=== PATIENT | female | born 1945 | race Caucasian/White ===

== ENCOUNTER 2017-06-25 07:13 | Day surgery (SDC) | payer MEDICARE ==
[2017-06-22 13:48] VITALS: BMI 35.5
[~2017-06-25 07:13] MED LIST: LACTATED RINGERS 1,000 ML IV SCH
[2017-06-25 07:30] VITALS: TEMP 97.9
[2017-06-25] MEDS ORDERED: PROPOFOL 10 MG/ML 20 ML VIAL IV ONE (08:11)
[2017-06-25] MEDS ORDERED: LIDOCAINE 1% INJ 10MG/ML (20 ML MDV) ONE (08:11)
--- NOTE | 2017-06-25 08:25 | P.GSHP ---
History of Present Illness H&P Date: 06/25/17 Chief Complaint: Colon cancer screening Patient here today for colonoscopy. Last colonoscopy 4 years ago. The patient has a personal history of colon polyps. No bowel related complaints. Past Medical History Past Medical History: GERD/Reflux Additional Past Medical History / Comment(s): hiatal hernia, wears pessary History of Any Multi-Drug Resistant Organisms: None Reported Past Surgical History: Hysterectomy Past Anesthesia/Blood Transfusion Reactions: No Reported Reaction Past Psychological History: Depression Smoking Status: Never smoker Past Alcohol Use History: None Reported Past Drug Use History: None Reported - Past Family History Mother Family Medical History: CVA/TIA Father Family Medical History: Diabetes Mellitus Medications and Allergies Home Medications Medication Instructions Recorded Confirmed Type Aspirin 81 mg PO DAILY 06/22/17 06/25/17 History Calcium Carb-Vit D 500Mg-200Un 1 each PO BID 06/22/17 06/25/17 History [Oscal 500+D] FLUoxetine HCL [PROzac] 20 mg PO QAM 06/22/17 06/25/17 History Ferrous Sulfate [Feosol] 325 mg PO DAILY 06/22/17 06/25/17 History Omeprazole [PriLOSEC] 20 mg PO QAM 06/22/17 06/25/17 History Raloxifene HCl 60 mg PO DAILY 06/22/17 06/25/17 History Simvastatin [Zocor] 20 mg PO HS 06/22/17 06/25/17 History Allergies Allergy/AdvReac Type Severity Reaction Status Date / Time Penicillins Allergy Rash/Hives Verified 06/22/17 13:36 morphine AdvReac Nausea & Verified 06/22/17 13:36 Vomiting Surgical - Exam Vital Signs Temp Pulse Resp BP Pulse Ox 97.9 F 72 20 136/77 99 06/25/17 07:28 06/25/17 07:28 06/25/17 07:28 06/25/17 07:28 06/25/17 07:28 Physical exam: General: Well-developed, well-nourished HEENT: Normocephalic, sclerae nonicteric Abdomen: Nontender, nondistended Extremities: No edema Neuro: Alert and oriented Assessment and Plan (1) Colon cancer screening Narrative/Plan: Will proceed with colonoscopy at this time. Current Visit: Yes Status: Acute Code(s): Z12.11 - ENCOUNTER FOR SCREENING FOR MALIGNANT NEOPLASM OF COLON SNOMED Code(s): 715877562
--- NOTE | 2017-06-25 08:36 | P.PCN ---
Date of Procedure: 06/25/17 Procedure(s) Performed: PREOPERATIVE DIAGNOSIS: Colon cancer screening POSTOPERATIVE DIAGNOSIS: Normal exam PROCEDURE: Colonoscopy ANESTHESIA: MAC SURGEON: Vadim Mackay M.D. SPECIMENS: None ENDOSCOPIC PROCEDURE: The patient was placed on the endoscopy table in the left decubitus position. The Olympus colonoscope was inserted into the anus and passed under direct visualization to the base of the cecum. The appendiceal orifice was visualized. From that point the scope was slowly withdrawn inspecting all surfaces carefully. There were no neoplastic inflammatory or polypoid lesions throughout the cecum, ascending, transverse, descending, sigmoid and rectum. There was no diverticulosis noted. Digital rectal examination was normal. The patient was taken to the recovery room in stable condition per anesthesia guidelines. RECOMMENDATIONS: Increase fiber. Consider follow-up colonoscopy 5 years given the patient's personal history of colon polyps.
[2017-06-25 08:42] VITALS: RESP 18
[2017-06-25 08:55] VITALS: BP 120/68; PULSE 78
== END 2017-06-25 09:10 | disposition home or self-care (01) ==
LOC: ORWHC2ENDO 07:13
PROVIDERS: ATTEND Surgery
DX: Z12.11 Encounter for screening for malignant neoplasm of colon (principal); Z87.19 Personal history of other diseases of the digestive system; K21.9 Gastro-esophageal reflux disease without esophagitis; K44.9 Diaphragmatic hernia without obstruction or gangrene; F32.9 Major depressive disorder, single episode, unspecified; Z79.82 Long term (current) use of aspirin; Z79.899 Other long term (current) drug therapy; Z88.5 Allergy status to narcotic agent; Z88.0 Allergy status to penicillin; E78.5 Hyperlipidemia, unspecified
CPT/HCPCS: J2001; J2704; G0121

== ENCOUNTER → 2018-07-09 | Outpatient (CLI) | payer MEDICARE ==
--- NOTE | 2018-07-10 15:37 | BD ---
EXAMINATION TYPE: Axial Bone Density DATE OF EXAM: 07/09/2018 COMPARISON: NONE CLINICAL HISTORY: post menopausal no HRT Height: 4'11 1/2 Weight: 178 FRAX RISK QUESTIONS: History of Fracture in Adulthood: y Secondary Osteoporosis: RISK FACTORS HISTORY OF: History of Wrist Fracture: rt When: 2018 Postmenopausal woman: y Take estrogen and/or progesterone medications: y How lon MEDICATIONS: Additional Medications: cholesterol, depression , Additional History: EXAM MEASUREMENTS: Bone mineral densitometry was performed using the [employer] System. Bone mineral density as measured about the Lumbar spine is: ----- L1-L4(G/cm2): 0.92 T Score Values are as follows: ----- L2: -2.1 ----- L3: -2.4 ----- L4: -1.8 ----- L1-L4: -2.1 Bone mineral density about the R hip (g/cm2): 0.747 Bone mineral density about the L hip (g/cm2): 0.768 T Score values are as follows: -----R Neck: -2.1 -----L Neck: -1.9 -----R Total: -2.6 -----L Total: -2.0 IMPRESSION: Osteoporosis (T Score less than -2.5) with regards to the right hip. There is increased fracture risk and therapy is usually indicated based on age. Re-Screen 1-2 years. NOTE: T-SCORE=SD OF THE YOUNG ADULT MEAN.
== END ==
LOC: RADBDWWP 14:10
PROVIDERS: ATTEND Family Medicine
DX: M81.0 Age-related osteoporosis without current pathological fracture (principal); Z78.0 Asymptomatic menopausal state
CPT/HCPCS: 77080

== ENCOUNTER → 2019-06-13 | Outpatient (CLI) | payer MEDICARE ==
[2019-06-13 11:13] LABS: Basophils # (A) 0.1 k/uL (0-0.2); Basophils % (A) 1 %; Eosinophils # (A) 0.3 k/uL (0-0.7); Eosinophils % (A) 4 %; HCT 46.4 % (34.0-46.0); Lymphocytes # (A) 1.8 k/uL (1.0-4.8); Lymphocytes % (A) 24 %; MCH 30.6 pg (25.0-35.0); MCHC 32.3 g/dL (31.0-37.0); MCV 94.7 fL (80.0-100.0); Mean Platelet Volume 9.4; Monocytes # (A) 0.2 k/uL (0-1.0); Monocytes % (A) 3 %; Neutrophils # (A) 4.9 k/uL (1.3-7.7); Neutrophils % (A) 67 %; Platelet Count 188 k/uL (150-450); WBC 7.3 k/uL (3.8-10.6)
[2019-06-13 11:19] LABS: ALT 15 U/L (4-34); AST 21 U/L (14-36); African American GFR (CKD) >90 (>60 ml/min/1.73 sqM); Alkaline Phosphatase 133 U/L (38-126); Anion Gap 5 mmol/L; Blood Urea Nitrogen 13 mg/dL (7-17); Calcium 9.2 mg/dL (8.4-10.2); Carbon Dioxide 31 mmol/L (22-30); Chloride 102 mmol/L (98-107); Glucose 92 mg/dL (74-99); Non-African American GFR(CKD) 83 (>60 ml/min/1.73 sqM); Potassium 5.3 mmol/L (3.5-5.1); Sodium 138 mmol/L (137-145); Total Bilirubin 0.4 mg/dL (0.2-1.3); Total Protein 7.1 g/dL (6.3-8.2)
[2019-06-13 11:32] LABS: Appearance,Urine Clear (Clear); Bilirubin,Urine Negative (Negative); Blood,Urine Negative (Negative); Color,Urine Yellow; Glucose,Urine (UA) Negative (Negative); Ketones,Urine Negative (Negative); Leukocyte Esterase,Urine Negative (Negative); Nitrite,Urine Negative (Negative); Protein,Urine Negative (Negative); Specific Gravity,Urine 1.016 (1.001-1.035); Urobilinogen,Urine <2.0 mg/dL (<2.0)
== END | disposition home or self-care (01) ==
LOC: LABPAT 10:07
PROVIDERS: ATTEND Urology
DX: Z01.812 Encounter for preprocedural laboratory examination (principal); N81.9 Female genital prolapse, unspecified; E86.0 Dehydration; R35.0 Frequency of micturition
CPT/HCPCS: 36415; 80053; 81003; 85025; 87086

== ENCOUNTER → 2019-09-18 | Outpatient (CLI) | payer MEDICARE ==
[2019-09-18 10:49] LABS: Basophils # (A) 0.1 k/uL (0-0.2); Basophils % (A) 1 %; Eosinophils # (A) 0.2 k/uL (0-0.7); Eosinophils % (A) 2 %; HCT 46.6 % (34.0-46.0); HGB 14.5 gm/dL (11.4-16.0); Lymphocytes # (A) 1.6 k/uL (1.0-4.8); Lymphocytes % (A) 22 %; MCH 30.3 pg (25.0-35.0); MCHC 31.2 g/dL (31.0-37.0); MCV 97.2 fL (80.0-100.0); Mean Platelet Volume 8.7; Monocytes # (A) 0.2 k/uL (0-1.0); Monocytes % (A) 3 %; Neutrophils # (A) 4.9 k/uL (1.3-7.7); Neutrophils % (A) 70 %; Platelet Count 187 k/uL (150-450); RBC 4.79 m/uL (3.80-5.40); RDW 13.6 % (11.5-15.5)
[2019-09-18 11:02] LABS: African American GFR (CKD) >90 (>60 ml/min/1.73 sqM); Anion Gap 3 mmol/L; Blood Urea Nitrogen 22 mg/dL (7-17); Calcium 8.9 mg/dL (8.4-10.2); Carbon Dioxide 29 mmol/L (22-30); Chloride 108 mmol/L (98-107); Glucose 92 mg/dL (74-99); Non-African American GFR(CKD) >90 (>60 ml/min/1.73 sqM); Potassium 5.2 mmol/L (3.5-5.1); Sodium 140 mmol/L (137-145)
[2019-09-18 11:07] LABS: Appearance,Urine Cloudy (Clear); Bilirubin,Urine Negative (Negative); Blood,Urine Negative (Negative); Color,Urine Yellow; Glucose,Urine (UA) Negative (Negative); Ketones,Urine Negative (Negative); Leukocyte Esterase,Urine Negative (Negative); Nitrite,Urine Negative (Negative); Protein,Urine Negative (Negative); Specific Gravity,Urine 1.022 (1.001-1.035); Squamous Epithelial Cell,Urine 1 /hpf (0-4); Urobilinogen,Urine <2.0 mg/dL (<2.0); WBC,Urine <1 /hpf (0-5)
== END | disposition home or self-care (01) ==
LOC: LABPAT 10:13
PROVIDERS: ATTEND Urology
DX: Z01.818 Encounter for other preprocedural examination (principal); N81.9 Female genital prolapse, unspecified; E86.0 Dehydration; R58 Hemorrhage, not elsewhere classified; R35.0 Frequency of micturition
CPT/HCPCS: 36415; 80048; 81001; 85025; 85610; 87086

== ENCOUNTER 2019-09-25 09:38 | Observation (INO) | payer MEDICARE ==
[2019-09-23 12:06] VITALS: BMI 33.5
--- NOTE | 2019-09-24 10:45 | P.HPIHPCON ---
History of Present Illness H&P Date: 09/25/19 Chief Complaint: pelvic organ prolapse Ms Batres is 73 yo female with stage IV organ prolapse, she is symptomatic from her prolapse. Surgical intervention and pessary was discussed with her. She elected to proceed with robotic sacrocolpopexy. Risk of bleeding, infection and mesh erosion were discussed with her. All risks and benefit of the operation were discussed with her. She understood all risks and agreed to proceed with robotic sacrocolpopexy Consent for Procedure: I have explained the operation/procedure to the patient, including the risks, benefits, side effects, alternative therapies (including not receiving the proposed treatment or service), the likelihood of the patient achieving his/her goals, and potential recuperation problems for the procedure/sedation/analgesia, as well as any blood products, if indicated. I also explained to the patient the risks, benefits and side effects of the alternatives, as well as the risks related to not receiving the proposed procedure, care, treatment, or services. - Constitutional Constitutional: Denies chills, Denies fever - Cardiovascular Cardiovascular: Denies chest pain, Denies shortness of breath - Respiratory Respiratory: Denies cough, Denies 7 - Gastrointestinal Gastrointestinal: Denies abdominal pain, Denies diarrhea, Denies nausea, Denies vomiting - Genitourinary (Female) Genitourinary: Denies dysuria, Denies hematuria Past Medical History Past Medical History: GERD/Reflux, Osteoarthritis (OA), Thyroid Disorder Additional Past Medical History / Comment(s): hiatal hernia, prolapse of genital organs currently. History of Any Multi-Drug Resistant Organisms: None Reported Past Surgical History: Hysterectomy Additional Past Surgical History / Comment(s): Colonoscopy Past Anesthesia/Blood Transfusion Reactions: No Reported Reaction Smoking Status: Never smoker - Past Family History Mother Family Medical History: CVA/TIA, Myocardial Infarction ([place]) Father Family Medical History: Diabetes Mellitus Brother(s) Family Medical History: Cancer Additional Family Medical History / Comment(s): stomach cancer Medications and Allergies Home Medications Medication Instructions Recorded Confirmed Type Aspirin 81 mg PO DAILY 06/22/17 09/23/19 History Calcium Carb-Vit D 500Mg-200Un 1 each PO BID 06/22/17 09/23/19 History [Oscal 500+D] FLUoxetine HCL [PROzac] 20 mg PO QAM 06/22/17 09/23/19 History Ferrous Sulfate [Feosol] 325 mg PO DAILY 06/22/17 09/23/19 History Omeprazole [PriLOSEC] 20 mg PO QAM 06/22/17 09/23/19 History Raloxifene HCl 60 mg PO DAILY 06/22/17 09/23/19 History Simvastatin [Zocor] 20 mg PO HS 06/22/17 09/23/19 History Ergocalciferol (Vitamin D2) 50,000 unit PO MO 06/17/19 09/23/19 History [Drisdol] Methimazole [Tapazole] 5 mg PO DAILY@1700 06/17/19 09/23/19 History Allergies Allergy/AdvReac Type Severity Reaction Status Date / Time Penicillins Allergy Rash/Hives Verified 09/23/19 11:31 morphine AdvReac Nausea & Verified 09/23/19 11:31 Vomiting Surgical - Exam - General well developed, well nourished, no distress - Eyes normal ocular movement - Respiratory normal expansion, normal respiratory effort - Abdomen Abdomen: soft, non tender - Psychiatric oriented to time, oriented to person, oriented to place, speech is normal Assessment and Plan Assessment: 73 yo female with hx of pelvic organ prolapse -OR for robotic sacrocolpopexy
[~2019-09-25 09:38] MED LIST changes: +CLINDAMYCIN 900 MG in DEXTROSE 5% IN WATER 50 ML IVPB ONE; +DEXAMETHASONE SOD PHOSPHATE 10 MG/ML 1 ML VIAL IV ONE; +GENTAMICIN 120 MG in SODIUM CHLORIDE 0.9% 100 ML IVPB ONE; +HYDROmorphone 0.5 MG/0.5 ML SYRINGE IVP PRN; +ONDANSETRON 4 MG/2 ML VIAL IVP ONE
[2019-09-25] MEDS ORDERED: ONDANSETRON 4 MG/2 ML VIAL ONE (11:05)
[2019-09-25] MEDS ORDERED: LIDOCAINE 1% (10MG/ML) FOR IV START SQ ONE (11:06)
[2019-09-25] MEDS ORDERED: MIDAZOLAM 2 MG/2 ML VIAL ONE (11:29)
[2019-09-25] MEDS ORDERED: NEOSTIGMINE 1 MG/ML 10 ML VIAL ONE (11:29)
[2019-09-25] MEDS ORDERED: LIDOCAINE 1% INJ 10MG/ML (20 ML MDV) ONE (11:29)
[2019-09-25] MEDS ORDERED: SUCCINYLCHOLINE CHLORIDE 100 MG/5 ML SYR IV ONE (11:29)
[2019-09-25] MEDS ORDERED: fentaNYL (PF) 50 MCG/ML 2 ML AMP ONE (11:29)
[2019-09-25] MEDS ORDERED: GLYCOPYRROLATE 0.2 MG/ML 2 ML VIAL ONE (11:29)
[2019-09-25] MEDS ORDERED: ROCURONIUM BROMIDE 10 MG/ML 5 ML VIAL IV ONE (11:29)
[2019-09-25] MEDS ORDERED: PROPOFOL 10 MG/ML 20 ML VIAL IV ONE (11:29)
[2019-09-25] MEDS ORDERED: BUPIVACAINE (PF) 0.25% 30 ML VIAL SQ ONE ×2 (12:12→13:32)
--- NOTE | 2019-09-25 13:43 | P.OP ---
Date of Procedure: 09/25/19 Preoperative Diagnosis: Pelvic organ prolapse grade 4 with cystocele and rectocele Postoperative Diagnosis: Pelvic organ prolapse grade 4 with cystocele and rectocele Procedure(s) Performed: Robotic sacral colpopexy with repair of cystocele and rectocele Implants: Y mesh Anesthesia: CHARBEL Surgeon: Anastacio Ramírez Undercover Cop #1: Jean Carlos Dickerson Estimated Blood Loss (ml): 10 IV fluids (ml): 200 Urine output (ml): 75 Pathology: none sent Condition: stable Disposition: PACU Indications for Procedure: Severe pelvic organ prolapse and procidentia. Large cystocele and rectocele Operative Findings: On pelvic exam there was complete prolapse of the bladder and rectum. The cystocele had prolapsed outside the vaginal introitus for 4-5 cm. There was complete laxity of the pelvic floor. Large rectocele and enterocele was also seen Description of Procedure: Madison was seen in the office prior to the colon with a severe pelvic organ prolapse with complete procidentia. She had a large cystocele and rectocele. She elected to undergo robotic sacral colpopexy. 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 I did an informed consent was obtained. She was taken to the OR and administered general anesthesia and placed in lithotomy position. Parts were prepped and draped. A Monsalve catheter was placed. A Veress needle was used to gain access to the peritoneum and a pneumoperitoneum was established at 20 mmHg. A standard port placement template similar to robotic sacral colpopexy was done, including 4 8 millimeter robotic ports and a 12 mm right-sided speech language pathologist assistant port. The robot was docked and the speech language pathologist assistant sac between the patient's legs with a vaginal sizer. With firm upward traction on the vagina and angle downwards, and with the monopolar scissors and fenestrated bipolar and the bladder was completely reflected off the vagina. The pelvic floor. Care was taken to stay in the avascular plane between the bladder and the vagina. There was no entry into the bladder or the vagina. Minor bleeding points were controlled with bipolar. Once the anterior dissection was completed the attention was directed to the posterior dissection. The speech language pathologist assistant pushed the sizer in an upwards and the rectum was completely dissected off the vagina down to the perineal body. Again all minor bleeding points were coagulated. Tension was then directed to the sacral promontory. The sigmoid was reflected to the left with the fourth arm, and an incision was made on the peritoneum over the sacral promontory. The entire sacral promontory was dissected, and the fat was excised to expose adequate amount of periosteum and bone to place 2 layers of sutures. Hemostasis was confirmed. The peritoneum posteriorly was incised from the sacral promontory to the vaginal opening to facilitate placement of the mesh. Attention was now directed to the Y mesh. The Y mesh was trimmed to the necessary size and introduced into the body through the 12 mm port. The Y mesh was placed over the vagina with one limb each on the anterior and posterior vaginal wall. Using 2-0 Ethibond interrupted sutures 3 layers of sutures were placed thereby fixing the mesh to the anterior vaginal wall. Care was taken to advance the mesh all the way distally. Attention was then directed to the posterior vaginal wall and the mesh was fixed to the posterior vaginal wall using 3 layers of 2-0 Ethibond, 2 sutures in each layer. Again the sutures were placed as distally as possible to the perineal body. Attention was taken so as to not enter the vagina with the sutures. Once the 2 limbs of the Y mesh was securely placed, attention was directed to the sacral promontory. The speech language pathologist assistant was asked to push the sizer firmly superiorly and the single Lembert of the Y mesh was then fixed to the sacral pro montory in 2 layers with interrupted sutures. Ethibond interrupted sutures were used to fix the mesh to the periosteum of the sacral promontory. Once this was completed the sizer was removed from the vagina and inspection of the vagina with a speculum showed complete resolution of the cystocele and only minor distal rectocele. A decision was made to not go ahead with additional vaginal reconstruction of the rectocele due to the extremely thin vaginal wall. Hemostasis was again confirmed. A 2-0 lock was then used to close the peritoneum incision so as to extrapertonialize the mesh completely. All the sutures and mesh pieces were removed. A count was performed which was correct. And the abdomen was desufflated and all ports were removed. All the incisions were closed with 4-0 Monocryl subcuticular sutures and the patient was sent to recovery in stable condition with the Monsalve catheter
[2019-09-25] MEDS ORDERED: ONDANSETRON 4 MG/2 ML VIAL IVP PRN (15:02)
[2019-09-25] MEDS: HEPARIN SODIUM,PORCINE 5,000 UNIT/ML 1 ML VIAL SQ SCH (17:08)
[2019-09-25] MEDS: CLINDAMYCIN 900 MG in DEXTROSE 5% IN WATER 50 ML IVPB SCH ×2 (18:27)
[2019-09-25] MEDS: DEXTROSE 5%-0.45% NACL 1,000 ML IV SCH (18:27)
[2019-09-25] MEDS: KETOROLAC 30 MG/ML 1 ML VIAL IVP SCH (18:30)
[2019-09-26] MEDS: KETOROLAC 30 MG/ML 1 ML VIAL IVP SCH ×3 (00:38→12:54)
[2019-09-26] MEDS: CLINDAMYCIN 900 MG in DEXTROSE 5% IN WATER 50 ML IVPB SCH ×2 (00:38)
[2019-09-26] MEDS: HEPARIN SODIUM,PORCINE 5,000 UNIT/ML 1 ML VIAL SQ SCH ×2 (00:39→09:43)
[2019-09-26] MEDS: DEXTROSE 5%-0.45% NACL 1,000 ML IV SCH ×2 (00:39→09:43)
[2019-09-26 08:51] VITALS: BP 126/53; PULSE 75; RESP 16; TEMP 98.2
--- NOTE | 2019-09-26 12:42 | P.DS ---
Providers Date of admission: 09/26/19 09:21 Attending physician: Anastacio Ramírez Primary care physician: Stated None Assessment: Mr. Batres is a 73-year-old female history of pelvic organ prolapse. She underwent a robotic-assisted laparoscopic sacral colpopexy on September 24. Please see op note dated dated September 24 for Surgery detail. She had an uneventful postoperative course. The catheter was removed on postoperative day #1. She was discharged home on postoperative day #1. At time of discharge she was tolerating a diet, ambulating, and pain is well-controlled Plan - Discharge Summary Discharge Rx Participant: No New Discharge Prescriptions: New Ibuprofen 600 mg PO Q8H PRN #30 tab PRN Reason: Pain No Action Omeprazole [PriLOSEC] 20 mg PO QAM FLUoxetine HCL [PROzac] 20 mg PO QAM Raloxifene HCl 60 mg PO DAILY Calcium Carb-Vit D 500Mg-200Un [Oscal 500+D] 1 each PO BID Aspirin 81 mg PO DAILY Simvastatin [Zocor] 20 mg PO HS Ferrous Sulfate [Feosol] 325 mg PO DAILY Methimazole [Tapazole] 5 mg PO DAILY@1700 Ergocalciferol (Vitamin D2) [Drisdol] 50,000 unit PO MO Discharge Medication List Aspirin 81 mg PO DAILY 06/22/17 [History] Calcium Carb-Vit D 500Mg-200Un [Oscal 500+D] 1 each PO BID 06/22/17 [History] FLUoxetine HCL [PROzac] 20 mg PO QAM 06/22/17 [History] Ferrous Sulfate [Feosol] 325 mg PO DAILY 06/22/17 [History] Omeprazole [PriLOSEC] 20 mg PO QAM 06/22/17 [History] Raloxifene HCl 60 mg PO DAILY 06/22/17 [History] Simvastatin [Zocor] 20 mg PO HS 06/22/17 [History] Ergocalciferol (Vitamin D2) [Drisdol] 50,000 unit PO MO 06/17/19 [History] Methimazole [Tapazole] 5 mg PO DAILY@1700 06/17/19 [History] Ibuprofen 600 mg PO Q8H PRN #30 tab 09/26/19 [Rx]
== END 2019-09-26 15:50 | disposition home or self-care (01) ==
LOC: OR 09:38 → 6PED 13:36 → OR 09-26 09:15 → 6PED 09-26 09:21
PROVIDERS: ADMIT Urology; ATTEND Urology
DX: N81.3 Complete uterovaginal prolapse (principal); K21.9 Gastro-esophageal reflux disease without esophagitis; M19.90 Unspecified osteoarthritis, unspecified site; E07.9 Disorder of thyroid, unspecified; Z90.710 Acquired absence of both cervix and uterus; Z79.82 Long term (current) use of aspirin; Z79.899 Other long term (current) drug therapy; Z88.0 Allergy status to penicillin; Z88.5 Allergy status to narcotic agent; Z82.49 Family history of ischemic heart disease and other diseases of the circulatory system; Z83.3 Family history of diabetes mellitus; Z82.3 Family history of stroke
CPT/HCPCS: 86900; 86901; 86902; 84132; 86850; 86870; 86880; 57260; 57267; G0378; C1781; J1644; J1100; J2405; J1885 ×2; J1580

== ENCOUNTER → 2023-02-13 | Outpatient (CLI) | payer MEDICARE ==
--- NOTE | 2023-02-13 14:05 | BD ---
EXAMINATION TYPE: Axial Bone Density DATE OF EXAM: 02/13/2023 CLINICAL HISTORY: 77 years old Female. ICD-10 CODE: M81.0 KNOWN OSTEOPOROSIS Height: 59.25 Weight: 200.9 FRAX RISK QUESTIONS: Alcohol (3 or more units per day): no Family History (Parent hip fracture): MOTHER Glucocorticoids (More than 3mos): no History of Fracture in Adulthood: no Secondary Osteoporosis: 1. Type 1 Diabetes: no 2. Hyperthyroidism: no 3. Menopause before 45: yes 4. Malnutrition: no 5. Chronic liver disease: no Rheumatoid Arthritis: no Current Tobacco Use: no RISK FACTORS HISTORY OF: Hip Fracture (Right/Left): no Spine Fracture: no History of Wrist Fracture: no Surgery to Spine/Hip(right/left)/Wrist (right/left): no Family History of Osteoporosis: no Active: no Diet low in dairy products/other sources of calcium: no Postmenopausal woman: yes Take estrogen and/or progesterone medications: no Lost more than 2 inches in height since high school: yes Frequent falls: no Poor Health: no Hyperparathyroidism: no Adrenal Insufficiency: no MEDICATIONS: Prednisone or other steroids: no Thyroid Medications: How Long: Osteoporosis Medications: Fosamax weekly How Long: past 2 years Additional Medications: Reflux meds, Evista, Cholesterol Meds, Vit D Additional History: EXAM MEASUREMENTS: Bone mineral densitometry was performed using the [employer] System. Bone mineral density as measured about the Lumbar spine is: ----- L1-L4(G/cm2): 0.926 T Score Values are as follows: ----- L1: -2.9 ----- L2: -2.8 ----- L3: -1.3 ----- L4: -1.9 ----- L1-L4: -2.1 Z Score Values are as follows: ----- L1: -2.0 ----- L2: -1.9 ----- L3: -0.4 ----- L4: -10 ----- L1-L4: -1.2 Bone mineral density has: increased 0.2 % since study of: 07/09/2018 Bone mineral density about the R hip (g/cm2): 0.714 Bone mineral density about the L hip (g/cm2): 0.776 T Score values are as follows: -----R Neck: -2.4 -----L Neck: -1.6 -----R Total: -2.3 -----L Total: -1.8 Z Score values are as follows: -----R Neck: -1.0 -----L Neck: -0.2 -----R Total: -1.2 -----L Total: -0.7 Bone mineral density has: increased 3.3 % since study of: 07/09/2018 FRAX%s: The graph provided illustrates a 27.6% chance for a major osteoporotic fx and a 17.7% chance for the hips probability for fx in 10 years time. IMPRESSION: Osteopenia (T Score between -2.5 and -1). There is slightly increased risk of fracture and the patient may be considered for treatment. Re-Screen 2-5 years. NOTE: T-SCORE=SD OF THE YOUNG ADULT MEAN.
== END | disposition home or self-care (01) ==
LOC: RADBDWWP 13:04
PROVIDERS: ATTEND Family Medicine
DX: M81.0 Age-related osteoporosis without current pathological fracture (principal); M85.89 Other specified disorders of bone density and structure, multiple sites; Z78.0 Asymptomatic menopausal state
CPT/HCPCS: 77080

== ENCOUNTER 2024-07-12 14:49 | Emergency (ER) | payer MEDICARE ==
[2024-07-12 14:54] VITALS: RESP 20; TEMP 98.9
--- NOTE | 2024-07-12 15:12 | ED ---
General Adult HPI - General Chief complaint: Fall Stated complaint: L arm injury Time Seen by Provider: 07/12/24 15:11 Source: EMS Mode of arrival: EMS Limitations: no limitations - History of Present Illness Initial comments: Madison is a pleasant 78-year-old female presents to the emergency department today via ambulance for evaluation of left arm pain. Patient reports she was working in her garden when she tripped fell landed on her left arm and has not been able to move it. EMS reported that there was obvious deformity at the elbow they splinted it in a position of comfort treated pain with ketamine. - Related Data Home Medications Medication Instructions Recorded Confirmed Aspirin 81 mg PO DAILY 06/22/17 09/25/19 Calcium Carb-Vit D 500Mg-5Mcg 1 each PO BID 06/22/17 09/25/19 [Oscal 500+D] FLUoxetine HCL [PROzac] 20 mg PO QAM 06/22/17 09/25/19 Ferrous Sulfate [Feosol] 325 mg PO DAILY 06/22/17 09/25/19 Omeprazole [PriLOSEC] 20 mg PO QAM 06/22/17 09/25/19 Raloxifene HCl 60 mg PO DAILY 06/22/17 09/25/19 Simvastatin [Zocor] 20 mg PO HS 06/22/17 09/25/19 Ergocalciferol (Vitamin D2) 50,000 unit PO MO 06/17/19 09/25/19 [Drisdol] methIMAzole [Tapazole] 5 mg PO DAILY@1700 06/17/19 09/25/19 Previous Rx's Medication Instructions Recorded Ibuprofen 600 mg PO Q8H PRN #30 tab 09/26/19 Cyclobenzaprine [Flexeril] 5 mg PO TID #20 tablet 07/12/24 HYDROcodone/APAP 5-325MG [[place] 1 tab PO Q6HR PRN 3 Days #12 tab 07/12/24 5-325] Ondansetron Odt [Zofran Odt] 4 mg PO Q8HR PRN #20 tab 07/12/24 Allergies Allergy/AdvReac Type Severity Reaction Status Date / Time Penicillins Allergy Rash/Hives Verified 07/12/24 14:54 morphine AdvReac Nausea & Verified 07/12/24 14:54 Vomiting Review of Systems ROS Statement: Those systems with pertinent positive or pertinent negative responses have been documented in the HPI. ROS Other: All systems not noted in ROS Statement are negative. Past Medical History Past Medical History: GERD/Reflux Additional Past Medical History / Comment(s): hiatal hernia, wears pessary History of Any Multi-Drug Resistant Organisms: None Reported Past Surgical History: Hysterectomy, Orthopedic Surgery Additional Past Surgical History / Comment(s): Colonoscopy Past Anesthesia/Blood Transfusion Reactions: No Reported Reaction Past Psychological History: Depression Smoking Status: Never smoker Past Alcohol Use History: None Reported Past Drug Use History: None Reported - Past Family History Mother Family Medical History: CVA/TIA, Myocardial Infarction ([place]) Father Family Medical History: Diabetes Mellitus Brother(s) Family Medical History: Cancer Additional Family Medical History / Comment(s): stomach cancer General Exam - General Exam Comments Initial Comments: Physical Exam GENERAL: Patient is well-developed and well-nourished. Patient is nontoxic and well-hydrated and is in no distress. HENT: Normocephalic, Atraumatic. EYES: PERRL, EOMI PULMONARY: Unlabored respirations. CARDIOVASCULAR: RRR Warm and well perfused extremities ABDOMEN: Non-distended SKIN: No rashes or bruising : Deferred NEUROLOGIC: Alert and oriented Normal speech Normal gait MUSCULOSKELETAL: Decreased range of motion of the left elbow secondary to pain, obvious deformity at the left elbow Hand is warm and well-perfused, neurovascularly intact PSYCHIATRIC: No SI/HI Limitations: no limitations Course Vital Signs 07/12/24 07/12/24 07/12/24 14:51 15:57 16:03 Temperature 98.9 F Pulse Rate 89 66 74 Respiratory 20 20 20 Rate Blood Pressure 180/80 163/85 149/95 O2 Sat by Pulse 95 99 100 Oximetry 07/12/24 07/12/24 07/12/24 16:05 16:20 16:35 Temperature Pulse Rate 87 59 L 63 Respiratory 20 20 20 Rate Blood Pressure 159/84 174/88 151/76 O2 Sat by Pulse 100 99 95 Oximetry 07/12/24 07/12/24 07/12/24 16:50 17:05 17:20 Temperature Pulse Rate 89 64 92 Respiratory 20 20 20 Rate Blood Pressure 164/87 158/82 181/89 O2 Sat by Pulse 95 95 100 Oximetry 07/12/24 07/12/24 07/12/24 17:24 17:29 17:34 Temperature Pulse Rate 95 82 88 Respiratory 20 20 20 Rate Blood Pressure 174/84 157/116 153/79 O2 Sat by Pulse 100 100 98 Oximetry 07/12/24 07/12/24 07/12/24 17:49 18:04 18:19 Temperature Pulse Rate 91 92 92 Respiratory 20 20 20 Rate Blood Pressure 169/90 160/84 155/64 O2 Sat by Pulse 95 97 97 Oximetry 07/12/24 18:34 Temperature Pulse Rate 98 Respiratory 20 Rate Blood Pressure 164/84 O2 Sat by Pulse 95 Oximetry Procedures - Orthopedic Joint Reduction Joint #1 Consent Obtained: verbal consent Side: left Joint Reduction Location: elbow Analgesia: procedural sedation Technique Used: direct manipulation Post-Reduction Neuro Exam: intact Post-Reduction Vascular Exam: intact Post Reduction X-Ray Obtained: Yes Post Reduction X-Ray Results: not reduced Splint Applied: Yes - Procedural Sedation *Procedural Sedation Start Time: 16:00 *Procedural Sedation Stop Time: 16:15 *Risks,benefits, and alternative therapies discussed?: Yes *Patient indicates understanding of risk/benefit discussion?: Yes *Indications: fracture/dislocation reduction *Previous Adverse Reaction to Anesthesia/Sedation?: No * Testing Complete?: No Reason Test Not Complete:: Age > 60 *ASA Class: II *Mallampati Airway Score: 1 Preparation: secured entrance monitor applied, pulse oximeter, capnometry used, supplemental O2 applied, reversal agents at bedside, suction/airway equipment at bedside, IV secured Fentanyl: IV IV Propofol Dose (mgs): 150 Complications: none Patient Tolerated Procedure: well Medical Decision Making - Medical Decision Making Was pt. sent in by a medical professional or institution (REBECCA Alas, RIGGING ENGINEER, urgent care, hospital, or halfway...) When possible be specific @ -[No] Did you speak to anyone other than the patient for history (EMS, parent, family, police, friend...)? What history was obtained from this source @ -EMS Did you review nursing and triage notes (agree or disagree)? Why? @ -[I reviewed and agree with nursing and triage notes] Were old charts reviewed (outside hosp., previous admission, EMS record, old EKG, old radiological studies, urgent care reports/EKG's, halfway records)? Report findings @ -[No old charts were reviewed] Differential Diagnosis (chest pain, altered mental status, abdominal pain women, abdominal pain men, vaginal bleeding, weakness, fever, dyspnea, syncope, headache, dizziness, GI bleed, back pain, seizure, CVA, palpatations, mental health)? @ -Dislocation versus fracture versus fracture with dislocation EKG interpreted by me (3pts min.). @ -[As above] X-rays interpreted by me (1pt min.). @ -Elbow dislocation CT interpreted by me (1pt min.). @ -[None done] U/S interpreted by me (1pt. min.). @ -[None done] What testing was considered but not performed or refused? (CT, X-rays, U/S, labs)? Why? @ -[None] What meds were considered but not given or refused? Why? @ -[None] Did you discuss the management of the patient with other professionals (professionals i.e. , PA, RIGGING ENGINEER, lab, RT, psych nurse, psychologist social, slip bridge operator, teacher, officer lieutenant, mental health case manager)? Give summary @ -Discussed with orthopedic surgeon Dr. MARTINS Was smoking cessation discussed for >3mins.? @ -[No] Was critical care preformed (if so, how long)? @ -[No] Were there social determinants of health that impacted care today? How? (Homelessness, low income, unemployed, alcoholism, drug addiction, transportation, low edu. Level, literacy, decrease access to med. care, custodial, rehab)? @ -[No] Was there de-escalation of care discussed even if they declined (Discuss DNR or withdrawal of care, Hospice)? DNR status @ -[No] What co-morbidities impacted this encounter? (DM, HTN, Smoking, COPD, CAD, Cancer, CVA, ARF, Chemo, Hep., AIDS, mental health diagnosis, sleep apnea, morbid obesity)? @ -[None] Was patient admitted / discharged? Hospital course, mention meds given and route, prescriptions, significant lab abnormalities, going to OR and other pertinent info. @ -Discharged The patient was seen and evaluated, x-rays confirmed a dislocation, patient was sedated with propofol and reduction was performed however the joint was grossly unstable and remained dislocated at repeat x-ray. Orthopedic surgery was consulted and came to the ER assisted with reduction and splinting with plaster splint. Reduction was more successful this time. Patient will be discharged home in a sling with plan for outpatient follow-up with orthopedics. Undiagnosed new problem with uncertain prognosis? @ -Yes, elbow dislocation that may require surgical repair Drug Therapy requiring intensive monitoring for toxicity (Heparin, Nitro, Insulin, Cardizem)? @ -[No] Were any procedures done? @ -[No] Diagnosis/symptom? @ -Left elbow dislocation Acute, or Chronic, or Acute on Chronic? @ -Acute Uncomplicated (without systemic symptoms) or Complicated (systemic symptoms)? @ -[default] Side effects of treatment? @ -[No] Exacerbation, Progression, or Severe Exacerbation? @ -[No] Poses a threat to life or bodily function? How? (Chest pain, [place], [place], pneumonia, PE, COPD, DKA, ARF, appy, cholecystitis, CVA, Diverticulitis, Homicidal, Suicidal, threat to staff... and all critical care pts) @ -Poses a threat to the function of the left arm Disposition Clinical Impression: Dislocation of left elbow Disposition: HOME SELF-CARE Condition: Stable Prescriptions: Cyclobenzaprine [Flexeril] 5 mg PO TID #20 tablet HYDROcodone/APAP 5-325MG [[place] 5-325] 1 tab PO Q6HR PRN 3 Days #12 tab PRN Reason: Pain Ondansetron Odt [Zofran Odt] 4 mg PO Q8HR PRN #20 tab PRN Reason: Nausea Is patient prescribed a controlled substance at d/c from ED?: No Referrals: Gene Shipman DO [Primary Care Provider] - 1-2 days Kilo Martins MD [STAFF PHYSICIAN] - 1-2 days
[2024-07-12] MEDS: ONDANSETRON 4 MG/2 ML VIAL IVP STA (15:54)
--- NOTE | 2024-07-12 15:55 | XR ---
EXAMINATION TYPE: XR humerus LT DATE OF EXAM: 07/12/2024 3:49 PM COMPARISON: None. CLINICAL INDICATION: Female, 78 years old with history of injury; PHH, pain TECHNIQUE: XR humerus LT examined in frontal and lateral projections. FINDINGS: Acute fracture and dislocation of the left radial head and likely ulna relative to the carlos javier. There are avulsion fractures noted adjacent to the radial head. Small to moderate-sized elbow luiz int effusion noted. IMPRESSION: Acute fracture and dislocation of the left elbow as above. [facility], , 07/12/2024 3:52 PM
--- NOTE | 2024-07-12 15:59 | XR ---
EXAMINATION TYPE: XR elbow complete LT DATE OF EXAM: 07/12/2024 3:49 PM COMPARISON: None CLINICAL INDICATION: Female, 78 years old with history of deformity; PHH, pain TECHNIQUE: XR elbow complete LT; elbow was examined in AP, lateral, and oblique projections. FINDINGS: Acute fracture dislocation of the left elbow with ossific fragments noted adjacent to the d isplaced radial head.There is approximately 2.4 cm of medial distraction of the radial head relative to the distal humerus. It is indeterminate whether the olecranon articulates with the humerus given l imited views. Moderate elbow joint effusion. IMPRESSION: Acute fracture and dislocation of the left elbow as above. [facility], , 07/12/2024 3:57 PM
[2024-07-12] MEDS: PROPOFOL 10 MG/ML 20 ML VIAL IV STA (16:01)
--- NOTE | 2024-07-12 16:46 | XR ---
EXAMINATION TYPE: XR elbow limited LT DATE OF EXAM: 07/12/2024 4:33 PM COMPARISON: Prior same day radiographs. CLINICAL INDICATION: Female, 78 years old with history of post reduction; PHH, pain TECHNIQUE: XR elbow limited LT; elbow was examined in AP, and lateral views. FINDINGS: Persistent acute fracture and dislocation of the ulna and radius relative to the humerus wi th fracture fragments noted adjacent to the radial head. Dilation of osseous details are limited due to overlying splint. IMPRESSION: Persistent acute fracture and dislocation of the ulna and radius. [facility], , 07/12/2024 4:44 PM
[2024-07-12] MEDS: PROPOFOL 10 MG/ML 20 ML VIAL IV ONE (17:20)
--- NOTE | 2024-07-12 17:56 | XR ---
EXAMINATION TYPE: XR elbow limited LT DATE OF EXAM: 07/12/2024 5:48 PM COMPARISON: Multiple prior radiographs. CLINICAL INDICATION: Female, 78 years old with history of post reduction; PHH, pain TECHNIQUE: XR elbow limited LT; elbow was examined in AP, lateral, and oblique projections. FINDINGS: Evaluation of osseous detail significantly limited due to overlying cast. There is signific antly improved alignment of the ulna and radius relative to the humeral head. Mildly displaced commin uted fracture of the proximal left radius. Elbow joint effusion present. IMPRESSION: Significantly improved alignment status post reduction. [facility], , 07/12/2024 5:54 PM
[2024-07-12 18:56] VITALS: BP 170/84; PULSE 94
[2024-07-12] MEDS: ONDANSETRON 4 MG ODT STARTER PACK 2 TAB BTL PO STA (19:01)
[2024-07-12] MEDS: ACET/COD 300 MG/30 MG STARTER PACK 6 TAB BTL PO STA (19:02)
--- NOTE | 2024-07-14 19:18 | P.CNOR ---
History of Present Illness - [facility] Consult date: 07/12/24 Requesting physician: Francesca Cordero Consult reason: other (Left elbow dislocation) History of present illness: Patient sustained a fall onto her left arm earlier today she noted immediate pain and deformity to the left arm at the elbow, she denied any numbness or tingling, she denied any further injuries during this event. On evaluation in the emergency room she was found to have a grossly dislocated left elbow, she underwent 2 reduction attempts by the ED staff however the joint was unable to be maintained reduced. Currently she notes continued pain to the left elbow and deformity but denies any numbness or tingling to the left upper extremity. Review of Systems Denies fevers or chills denies chest pain and shortness of breath Notes pain to the left elbow Denies numbness or tingling Past Medical History Past Medical History: GERD/Reflux Additional Past Medical History / Comment(s): hiatal hernia, wears pessary History of Any Multi-Drug Resistant Organisms: None Reported Past Surgical History: Hysterectomy, Orthopedic Surgery Additional Past Surgical History / Comment(s): Colonoscopy Past Anesthesia/Blood Transfusion Reactions: No Reported Reaction Past Psychological History: Depression Smoking Status: Never smoker Past Alcohol Use History: None Reported Past Drug Use History: None Reported - Past Family History Mother Family Medical History: CVA/TIA, Myocardial Infarction ([place]) Father Family Medical History: Diabetes Mellitus Brother(s) Family Medical History: Cancer Additional Family Medical History / Comment(s): stomach cancer Medications and Allergies Home Medications Medication Instructions Recorded Confirmed Type Aspirin 81 mg PO DAILY 06/22/17 09/25/19 History Calcium Carb-Vit D 500Mg-5Mcg 1 each PO BID 06/22/17 09/25/19 History [Oscal 500+D] FLUoxetine HCL [PROzac] 20 mg PO QAM 06/22/17 09/25/19 History Ferrous Sulfate [Feosol] 325 mg PO DAILY 06/22/17 09/25/19 History Omeprazole [PriLOSEC] 20 mg PO QAM 06/22/17 09/25/19 History Raloxifene HCl 60 mg PO DAILY 06/22/17 09/25/19 History Simvastatin [Zocor] 20 mg PO HS 06/22/17 09/25/19 History Ergocalciferol (Vitamin D2) 50,000 unit PO MO 06/17/19 09/25/19 History [Drisdol] methIMAzole [Tapazole] 5 mg PO DAILY@1700 06/17/19 09/25/19 History Ibuprofen 600 mg PO Q8H PRN #30 tab 09/26/19 Rx Cyclobenzaprine [Flexeril] 5 mg PO TID #20 tablet 07/12/24 Rx HYDROcodone/APAP 5-325MG [[place] 1 tab PO Q6HR PRN 3 Days #12 tab 07/12/24 Rx 5-325] Ondansetron Odt [Zofran Odt] 4 mg PO Q8HR PRN #20 tab 07/12/24 Rx Allergies Allergy/AdvReac Type Severity Reaction Status Date / Time Penicillins Allergy Rash/Hives Verified 07/12/24 14:54 morphine AdvReac Nausea & Verified 07/12/24 14:54 Vomiting Physical Examination On exam of the left elbow with the skin is intact there is moderate swelling, th e elbow is tender to palpation globally there is a notable lateral and valgus deformity to the elbow, patient has limited active motion of the elbow, she is neurovascularly intact to the left arm distally to the elbow there is palpable radial pulse and brisk capillary refill throughout the left hand. Results - Diagnostic results Elbow x-ray: image reviewed (Initial x-rays of the left elbow show a significantly displaced elbow joint with notable posterior and lateral translation, subsequent postreduction films confirm incomplete reduction with residual posterior and lateral dislocation) Assessment and Plan Assessment: Left elbow dislocation with significant instability Plan: Procedure: Left elbow closed reduction After sedation was administered per the ED staff a gentle closed reduction maneuver with direct ulnarly directed force as well as longitudinal traction was applied to the left elbow, palpable reduction was felt the elbow was found to be grossly unstable and would dislocate with any extension beyond 60 degrees of flexion. A well-padded posterior slab splint with medial and lateral stirrups was then applied in a significant valgus mold was imparted to maintain reduction of the elbow joint. Images confirm reduction of the elbow joint as well as no further fractures identified. Patient was neurovascularly intact to the left upper extremity following reduction Patient tolerated the procedure well Had a detailed discussion with the patient and regarding the nature of this injury and specifically the inherently unstable nature of the elbow following her injury Given the significant level of displacement I have suspicion that she has significant damage and disruption to both the medial and lateral ligamentous structures I think there is a strong likelihood that patient will require repair if not reconstruction of these ligaments and possibly application of an internal joint stabilizer I discussed with them that these are not procedures that I routinely perform and I have provided them with recommendations for shoulder and elbow surgeons in the [facility] area namely Dr. Whitaker at [facility], Dr. Rodriguez, as well as Dr. Cortes at [facility] for them to follow-up and have further discussions regarding likely surgical intervention for elbow stabilization. Recommend follow-up sometime in the coming week with one of the above mentioned surgeons or another shoulder/elbow specialist of their choosing for further x- ray evaluation to confirm maintained reduction For now nonweightbearing to the left upper extremity Maintain splint at all times Pain medications per the emergency department
== END 2024-07-12 19:25 | disposition home or self-care (01) ==
LOC: EC 14:49
DX: S53.105A Unspecified dislocation of left ulnohumeral joint, initial encounter (principal); Z88.0 Allergy status to penicillin; Z88.5 Allergy status to narcotic agent; W01.0XXA Fall on same level from slipping, tripping and stumbling without subsequent striking against object, initial encounter; Y99.0 Civilian activity done for income or pay
CPT/HCPCS: 99152 ×2; 24600 ×2; 99283; 96374 ×2; 73060; 73070; 73080; 99284; J2405; S0119; J2704